=== PATIENT | male | born 2000 | race Caucasian/White ===

== ENCOUNTER 2018-03-26 18:39 | Emergency (ER) | payer MEDICAID, SELFPAY ==
[2018-03-26 18:54] VITALS: BP 114/63; PULSE 77; RESP 14; TEMP 36.9; O2SAT 99
--- NOTE | 2018-03-26 19:12 | DI.REPORT_ITS ---
SYMPTOM/DIAGNOSIS: KNEE PAIN RIGHT KNEE: Three views. No acute fracture or dislocation seen. There is a small joint effusion. Mild soft tissue swelling is present about the knee. IMPRESSION: No acute fracture or dislocation. 2. Small joint effusion and mild soft tissue swelling.
[2018-03-26] MEDS: Ibuprofen 600 MG TAB PO (19:25)
--- NOTE | 2018-03-26 19:42 | DI.VRAD_ITS ---
EXAM: XR Right Knee, 3 views CLINICAL HISTORY: 17 years old, male; Pain; Knee; Right; Patient HX: Knee pain after trauma while wrestling TECHNIQUE: Three views of the right knee. COMPARISON: No relevant prior studies available. FINDINGS: Bones/joints: Unremarkable. No acute fracture. No dislocation. Soft tissues: The lateral view demonstrates some mild anterior prepatellar soft tissue swelling to be present. IMPRESSION: 1. Some mild anterior prepatellar soft tissue swelling is identified. Dictated and Authenticated by: Anurag Corley MD. Ordering:SHANTEL BROTHERS MD
--- NOTE | 2018-03-26 20:26 | ED.GENADUL_ITS ---
Disposition Clinical Impression: Sprain of right knee Disposition: HOME Condition: Stable Instructions: Knee Sprain (ED), RICE Therapy (ED) Additional Instructions: Rest your right lower externally over the next 2 days and advance activity as tolerated. If something is significantly painful please do not perform this type activities and allow you need to rest further. Wear the knee brace at all times for at least the next 2 weeks as this will help with discomfort and healing. If not improving over the next 2 weeks follow-up with orthopedist for reassessment. Feel free to return immediately for any significant worsening of symptoms, fever chills, or further concerns you may have. Referrals: Marin Jmi MD [ [facility]YS[facility]IAN] - 2 weeks (Call the orthopedist in 2 weeks if not showing signs of improvement.) Medical Decision Making - Radiology Data Radiology results: report reviewed, image reviewed - Medical Decision Making Patient presenting to the emergency department for complaint of right knee pain after horseplay. he states that he felt a pop during the episode. Pain is remained consistent and not improving. Patient states initially he could not bear any weight but now he can somewhat walk on it but it is tender. Patient has some patellar tenderness with discomfort to the medial aspect. Physical exam shows some hesitancy for full extension of the knee but patient is able to fully extend the knee and there is no laxity with ligamentous testing. There is mild erythema to the anterior surface of the knee the patient had just removed his neoprene knee brace which I feel is more the cause of the erythema. No significant warmth to palpation of the skin. Concern more for sprain of the knee and fracture but given the patient is having difficulty with bearing weight do feel that radiological imaging is warranted. Pending results patient given Motrin. After review of radiological imaging and radiologist interpretation showing some mild prepatellar soft tissue swelling otherwise unremarkable patient reassessed. Did have patient ambulate and he is able to bear weight with some painful response but otherwise is unremarkable. Patient does state that he has felt his knee occasionally feel like it was going to give out but this is not fully occurred. Given this patient was given a hinged knee brace for additional support and informed to rest over the next couple days and to slowly advance activity as tolerated. If patient not improving over the next 2 weeks he was informed to call the orthopedic office for arrangement of follow-up appointment. Otherwise patient to take [id number] pain medication as needed. History of Present Illness - General Chief complaint: Orthopedic Stated complaint: UNKNOWN Time Seen by Provider: 03/26/18 18:41 Source: patient, RN notes reviewed Mode of arrival: ambulatory Limitations: no limitations - History of Present Illness Initial comments: Patient reports approximately 5 days ago he was wrestling and roughhousing with some of his friends when he felt a pop in his right knee. Initially he states he was unable to bear weight but has been slowly able to tolerate more weightbearing activities but is continued to have constant pain. Knee has been swollen since the initial incident. He has been wearing a neoprene knee brace that is mildly helped with his symptoms. He does state that occasionally he feels like his knee is going to give out. Onset/Timin -: days(s) Location: right, lower extremity Severity scale (1-10): 9 Quality: aching, sharp Consistency: constant Improves with: immobilization Worsens with: movement Associated Symptoms: denies other symptoms Treatments Prior to Arrival: NSAID - Related Data Ibuprofen 400 mg PRN PRN 03/26/18 Allergies Allergy/AdvReac Type Severity Reaction Status Date / Time No Known Allergies Allergy Unverified 03/26/18 19:01 Review of Systems Constitutional: no symptoms reported. denies: chills, fever, malaise Respiratory: no symptoms reported Cardiovascular: denies: syncope Musculoskeletal: as per HPI, joint swelling, arthralgia Skin: as per HPI, change in color Past Medical History - Past Medical History Medical history: no medical history Surgical history: no surgical history - Social History Smoking status: never smoker Alcohol use: none Drug use: none Living Situation: lives with family General Exam - General Limitations: no limitations General appearance: alert, in no apparent distress - Head Head exam: Present: atraumatic - Respiratory Respiratory exam: Absent: respiratory distress - Cardiovascular Cardiovascular Exam: Present: regular rate, normal rhythm - Expanded Lower Extremity Exam Right Upper Leg exam: Present: normal inspection Knee exam: Present: full ROM, tenderness (To palpation of lateral knee), swelling (Mild), erythema (Mild), pain w/ pronation/supination, posterior draw sign, pain/laxity with varus (Pain but no laxity), full knee extension. Absent : pain/laxity with valgus Lower Leg exam: Present: normal inspection Ankle exam: Present: normal inspection Neuro vascular tendon exam: Present: no vascular compromise. Absent: pulse deficit, motor deficit, sensory deficit, tendon deficit, abnormal 2-point discrimination Gait: observed and limited by pain - Neurological Exam Neurological exam: Present: alert, oriented X3. Absent: altered - Skin Skin exam: Present: warm, dry, intact Course Vital Signs - 24 hr 03/26/18 18:54 Temperature 36.9 C Pulse 77 Respiratory 14 Rate Blood Pressure 114/63 Pulse Oximetry 99
--- NOTE | 2018-03-26 20:33 | NUR.NOTE ---
Nursing Note: pt refused ice pack
== END 2018-03-26 20:34 | disposition home or self-care (01) ==
PROVIDERS: Emergency Provider Physician Assistant; PCP Pediatrics
DX: S83.91XA Sprain of unspecified site of right knee, initial encounter (principal); X50.9XXA Other and unspecified overexertion or strenuous movements or postures, initial encounter; Y93.83 Activity, rough housing and horseplay
CPT/HCPCS: 73562; 99283; L1820